=== PATIENT | female | born 1990 | race Caucasian/White ===

== ENCOUNTER → 2023-09-13 11:23 | Outpatient (REF) | payer OTHER, SELFPAY | LOC: RAD 11:23 | PROVIDERS: ATTENDING PHYSICIAN Internal Medicine Gastroenterology; FAMILY PHYSICIAN Nurse Practitioner | DX: R10.11 Right upper quadrant pain (principal) | CPT/HCPCS: 76700 ==

== ENCOUNTER 2023-09-14 10:06 | Emergency (ER) | payer OTHER, SELFPAY ==
[2023-09-14 10:12] VITALS: BP 145/97
--- NOTE | 2023-09-14 11:01 | ED.GENMED ---
History of Present Illness
General
Chief Complaint: Abdominal Pain
Source: patient
Exam Limitations: none
Time Seen by Provider: 09/14/23 10:47
Travel History
Have you had any contact with someone who has COVID-19?: No
Do you have any symptoms of coronavirus? Fever > 100 degrees, chills, cough, shortness of breath, sore throat, loss of taste or smell, muscle aches, or headache?: No
History of Present Illness
History of Present Illness:
32-year-old female presents complaining of right flank and scapular pain getting worse over the past several days. Pain is made worse with motion and deep breathing. Pain is unchanged with eating. She has a prior history of cholecystectomy. She
is on control pills. No recent travel. She had 1 episode of diarrhea 1 week ago with red blood associated with it. She has not had any bloody stool since then. She notes she has the urge to urinate without the ability to go significantly.
She had an ultrasound performed by her GI doctor yesterday which showed a fatty liver.
Past History
Past History
ED Past Medical History: HTN ()
ED Past Surgical History: Cholecystectomy and Orthopedic
Social History
Tobacco: Non-smoker
Phy Exam
Physical Exam
Physical Exam:
General: Well-appearing female no acute respiratory distress
HEENT: Normocephalic atraumatic
Heart: Regular rate and rhythm no murmurs
Lungs: Clear no wheeze or rales
Abdomen soft tender to the right costovertebral angle and right mid abdomen as well as the right posterior chest wall.
Extremities: No cyanosis or edema
Skin: Warm no rash
Course
Orders/Labs/Results
Orders:
Orders
09/14/23 11:01
Test Result ONCE
09/14/23 11:45
Complete Blood Count/With Diff Urgent
Comprehensive Metabolic Panel Urgent
D-Dimer Urgent
HCG, Serum Qualitative Screen Urgent
Lipase Urgent
09/14/23 12:59
Urinalysis Reflex To Culture Urgent
Date Specimen was Collected: 09/14/23
Time Specimen was Collected: 12:58
Urine Microscopic Reflex Cult Urgent
09/14/23 13:03
0.9% Sodium Chloride 1000 ml [Nss] 1,000 ml IV BOLUS
09/14/23 13:04
CT Abd/pel Without Iv Or Oral Urgent
Comment:
Reason For Exam: right flank pain
09/14/23 15:03
CR Ribs-right 3 Vw W/pa Chest* Urgent
Comment:
Reason For Exam: right rib pain
Abnormal Lab Results
09/14/23 09/14/23
11:45 12:59
RBC 3.70 L 10^6/uL
(4.20-5.40)
Hgb 11.1 L g/dL
(12.0-16.0)
Hct 32.4 L %
(37.0-47.0)
Chloride 108 H mmol/L
(98-107)
Creatinine 0.5 L mg/dL
(0.6-1.0)
Glucose 112 H mg/dl
(70-99)
AST 52 H U/L
(14-36)
ALT 53 H U/L
(0-35)
Total Protein 5.9 L g/dl
(6.3-8.2)
Albumin 3.3 L g/dl
(3.5-5.0)
Urine Ketones Trace A
(Negative)
Ur Occult Blood Reflex Trace A
(Negative)
09/14/23 11:45
09/14/23 11:45
Vital Signs
Initial and Last Documented VS:
Initial Vital Signs
Temp Pulse Resp BP Pulse Ox
98.9 F 122 20 145/97 96
09/14/23 10:12 09/14/23 10:12 09/14/23 10:12 09/14/23 10:12 09/14/23 10:12
Last Documented Vital Signs
Temp Pulse Resp BP Pulse Ox
98.9 F 80 17 133/90 97
09/14/23 10:12 09/14/23 15:44 09/14/23 15:44 09/14/23 15:44 09/14/23 15:44
MDM/Problems Addressed
Differential Diagnosis Includes:
Flank pain. Consider renal colic versus musculoskeletal flank pain versus PE. Will check d-dimer andl lipase and hcg.
*Critical Care Note
Total Time (30-74mins, 75-104mins- exclusive of procedures): Not Applicable
Update Note
Update Note:
D-dimer negative. Do not suspect PE. CT of the abdomen pelvis was performed to evaluate for right flank pain which was negative for obvious acute finding. Rib series was ordered as well which was negative. Suspect musculoskeletal flank pain.
Recommended Valium for muscle relaxer and Motrin for anti-inflammatory. Stable for discharge.
ED Attending Note
-
Portions of this chart may have been created with voice recognition software.� Occasional wrong word or��sound alike� substitutions may have occurred due to the inherent limitations of voice recognition software.
Discharge Plan
Departure
Patient Disposition: Home (Routine Discharge)
Date of Disposition: 09/14/23
Time of Disposition: 15:59
Patient with high blood pressure during this ER visit?: No
Discharge Problem:
Acute flank pain
Instructions: Flank Pain
Prescriptions:
New
diazepam [Valium] 5 mg tablet
5 mg PO TID PRN (Reason: muscle spasm) Qty: 10 0RF
No Action
Vitamin Tablet
1 tab PO DAILY
Zyrtec
10 mg PO DAILY
fluticasone propionate 1 SPRAY spray,suspension
2 spray intranasal DAILY
acetaminophen 325 MG tablet
650 mg PO Q4HPRN PRN (Reason: mild pain) 0RF
ibuprofen 600 MG tablet
600 mg PO Q4HPRN PRN (Reason: moderate pain/cramps) 0RF
Referrals:
Bethany Boles CRNP [Family Provider] -
Activity Restrictions/Additional Instructions:
Continue with Motrin 600 mg every 6 or 8 hours as needed for pain. Use warm compresses. Use Valium if needed for spasm. Return if worse otherwise follow-up with your doctor at your office
Interventions
Interventions:
*Risk Screen - Suicide Last Done: 09/14/23 10:16
*General Assessment Last Done: 09/14/23 10:16
*Neglect/Abuse Screening Last Done: 09/14/23 10:16
ED- Fall Risk Assessment Last Done: 09/14/23 16:14
*ED COVID-19 Vaccine History Last Done: 09/14/23 10:16
*Nursing Disposition Last Done: 09/14/23 16:14
OL-Gqootx-Gznwikfzro Assessment Last Done: 09/14/23 11:50
Discharge Date and Time
Discharge Date/Time: 09/14/23 16:14
Print Language: [place]
[2023-09-14 11:54] LABS: % Basophils 0.4 % (0-2); % Eosinophils 2.5 % (0-6); % Immature Granulocytes 0.2 % (0-0.5); % Lymphocytes 37.1 % (20.5-51.1); % Monocytes 6.3 % (1.7-9.3); % Neutrophils 53.5 % (42.2-75.2); Absolute Eosinophils 0.1 10^3/uL (0-0.7); Absolute Lymphocytes 2.1 10^3/uL (1.2-3.4); Absolute Monocytes 0.4 10^3/uL (0.1-0.6); Hematocrit 32.4 % (37.0-47.0); Hemoglobin 11.1 g/dL (12.0-16.0); Mean Corp Hgb Conc. 34.3 g/dL (33.0-37.0); Mean Corpuscular Volume 87.6 fL (81.0-99.0); Mean Platelet Volume 9.4 fL (7.4-10.4); Nucleated Red Blood Cells % 0 %; Platelet Count 233 10^3/uL (130-400); Red Cell Dist. Width 13.1 % (11.5-14.5); White Blood Cell Count 5.6 10^3/uL (4.8-10.8)
[2023-09-14 12:08] LABS: ALT (SGPT) 53 U/L (0-35); AST (SGOT) 52 U/L (14-36); Albumin 3.3 g/dl (3.5-5.0); Alkaline Phosphatase 67 U/L (38-126); Blood Urea Nitrogen 15 mg/dl (7-17); Calcium 8.6 mg/dl (8.4-10.2); Carbon Dioxide 22 mmol/L (22-30); Chloride 108 mmol/L (98-107); Glucose 112 mg/dl (70-99); Lipase 87 U/L (23-300); Sodium 137 mmol/L (135-145); Total Bilirubin 0.3 mg/dl (0.2-1.3); Total Protein 5.9 g/dl (6.3-8.2); eGFR > 60.00
[2023-09-14 12:09] LABS: HCG, Serum Qualitative Screen Negative
[2023-09-14] MEDS: NSS 1000 IV (13:03)
[2023-09-14 13:18] LABS: Urine Albumin Negative (Neg - Trace); Urine Bilirubin Negative (Negative); Urine Character Clear (Clear); Urine Color Yellow; Urine Glucose Negative (Negative); Urine Ketone Trace (Negative); Urine Leukocyte Negative (Negative); Urine Nitrite Negative (Negative); Urine Occult Blood Trace (Negative); Urine Specific Gravity 1.025 (<1.030); Urine Urobilinogen Negative (Neg - 1+)
[2023-09-14 13:51] LABS: Urine Mucus Moderate; Urine Squamous Cell 21-25 /LPF (Few)
[2023-09-14 13:52] LABS: Urine Red Blood Cell 0-2 /HPF (0-2); Urine White Cell 0-2 /HPF (0-5)
[2023-09-14 15:44] VITALS: BP 133/90
== END 2023-09-14 16:14 | disposition home or self-care (01) ==
LOC: EMR 10:06
PROVIDERS: Physician Assistant; EMERGENCY PHYSICIAN Emergency Medicine; FAMILY PHYSICIAN Nurse Practitioner
DX: R10.9 Unspecified abdominal pain (principal)
CPT/HCPCS: 99285; 96360; 71101; 74176; 80053; 81003; 81015; 83690; 84703; 85025; 85379